=== PATIENT | female | born 1975 | race Caucasian/White ===

== ENCOUNTER 2020-02-18 10:34 | Outpatient (NON) | payer OTHER, SELFPAY ==
[2020-02-19 13:09] LABS: SARS-CoV-2 RNA PCR Negative
== END 2020-02-18 10:35 ==
LOC: ANHCOVIDDT 10:36
PROVIDERS: PCP Registered Nurse; Visit Provider Registered Nurse
DX: J02.9 Acute pharyngitis, unspecified (principal); J34.89 Other specified disorders of nose and nasal sinuses; Z20.828 Contact with and (suspected) exposure to other viral communicable diseases
CPT/HCPCS: 87635; C9803; U0003